=== PATIENT | female | born 1970 | race Caucasian/White ===

== ENCOUNTER → 2017-01-19 | Outpatient (CLI) | payer OTHER | LOC: MAMMO 01-12 14:01 | DX: Z12.31 Encounter for screening mammogram for malignant neoplasm of breast (principal) | CPT/HCPCS: G0202 ==

== ENCOUNTER 2020-06-16 16:48 | Emergency (ER) | payer BC ==
[2020-06-16] MEDS ORDERED: NEURONTIN300 MG/CAP (17:30)
[2020-06-16] MEDS ORDERED: AMARYL4 M1 PO (17:30)
[2020-06-16] MEDS ORDERED: GLUCOPHAGE850 MG PO (17:30)
[2020-06-16] MEDS ORDERED: NORCO 325 MG-7.1 TA1 PO (17:31)
[2020-06-16] MEDS ORDERED: KLONOPIN 0.5MG0.5 MG PO (17:31)
[2020-06-16] MEDS ORDERED: ZANAFLEX4 M1 PO (17:32)
[2020-06-16] MEDS ORDERED: ZESTRIL20 M1 PO (17:32)
[2020-06-16] MEDS ORDERED: METOPROLOL SUCC50 M1 PO (17:33)
[2020-06-16] MEDS ORDERED: WELLBUTRIN SR150 M3 PO (17:34)
[2020-06-16] MEDS ORDERED: CLARITIN 1010 MG/TAB PO (17:34)
[2020-06-16] MEDS ORDERED: CYMBALTA60 M1 PO (17:34)
[2020-06-16 17:37] LABS: HEMATOCRIT 35.1 % (37.0-47.0); HEMOGLOBIN 11.9 g/dL (12.5-16.0); MEAN CELL VOLUME 88 fl (78-100); MEAN CORPUSCULAR HEMOGLOBIN 30 pg (27-31); MEAN CORPUSCULAR HGB CONC 34 g/dL (33-37); MEAN PLATELET VOLUME 11.4 fl (7.4-10.4); PLATELET COUNT 174 K/mm3 (130-400); RED BLOOD COUNT 3.99 M/mm3 (4.10-5.30); RED CELL DISTRIBUTION WIDTH 12.9 % (11.5-14.5); WHITE BLOOD COUNT 9.7 K/mm3 (4.8-10.8)
[2020-06-16 17:43] LABS: ALBUMIN 3.5 g/dL (3.5-5.0); POTASSIUM 4.5 mmol/L (3.5-5.1)
[2020-06-16 17:45] LABS: CALCIUM 9.2 mg/dL (8.3-10.5)
[2020-06-16 17:46] LABS: TOTAL PROTEIN 7.1 g/dL (6.4-8.3)
[2020-06-16 17:48] LABS: TOTAL BILIRUBIN 0.4 mg/dL (0.2-1.2)
[2020-06-16 17:55] LABS: PARTIAL THROMBOPLASTIN TIME 23.9 SECONDS (21.0-32.0); PROTHROMBIN TIME 9.6 SECONDS (9.0-12.0)
[2020-06-16] MEDS ORDERED: VICTOZA 3-0.6 MG/0.1 SQ (17:58)
[2020-06-16] MEDS ORDERED: LANTUS PEN100 U/ML SQ (18:37)
[2020-06-16 18:55] LABS: BAND 1 % (0-10); LYMPHOCYTE 18 % (20-51); MONOCYTE 11 % (3-10); NEUTROPHILS 70 % (42-75)
[2020-06-16 19:24] LABS: D-DIMER 2.69 mg/L FEU (0.15-0.50)
[2020-06-16 20:04] LABS: URINE APPEARANCE HAZY; URINE COLOR YELLOW; URINE KETONE 2+ (NEGATIVE); URINE PROTEIN(semi-quant) TRACE mg/dL (NEGATIVE)
[2020-06-16 20:05] LABS: URINE BILIRUBIN NEGATIVE (NEGATIVE); URINE BLOOD 50 ery/uL (NEGATIVE); URINE LEUKOCYTE ESTERASE TRACE (NEGATIVE); URINE NITRATE NEGATIVE (NEGATIVE); URINE UROBILINOGEN NORMAL (NORMAL); URINE WBC 16-30 /hpf (0-3)
[2020-06-16] MEDS ORDERED: CEPHALEXIN500 M2 PO (22:36)
[2020-06-16] MEDS ORDERED: NEXIUM 40MG40 MG PO (22:37)
[2020-06-16 22:55] VITALS: BP 160/92
== END 2020-06-16 22:55 | disposition home or self-care (01) ==
LOC: ED 16:48
PROVIDERS: Nurse Practitioner
DX: K27.9 Peptic ulcer, site unspecified, unspecified as acute or chronic, without hemorrhage or perforation (principal); N12 Tubulo-interstitial nephritis, not specified as acute or chronic; R73.9 Hyperglycemia, unspecified; Z91.14 Patient's other noncompliance with medication regimen; Z90.49 Acquired absence of other specified parts of digestive tract; Z90.710 Acquired absence of both cervix and uterus; Z87.891 Personal history of nicotine dependence; Z79.4 Long term (current) use of insulin; Z20.822 Contact with and (suspected) exposure to COVID-19
CPT/HCPCS: C9113; J0696; J7030; Q9967

== ENCOUNTER → 2021-09-16 | Outpatient (CLI) | payer BC ==
[~2021-09-16] MED LIST: AMARYL4 M1 PO; CEPHALEXIN500 M2 PO; CLARITIN 1010 MG/TAB PO; CYMBALTA60 M1 PO; GLUCOPHAGE850 MG PO; KLONOPIN 0.5MG0.5 MG PO; LANTUS PEN100 U/ML SQ; METOPROLOL SUCC50 M1 PO; NEURONTIN300 MG/CAP; NEXIUM 40MG40 MG PO; NORCO 325 MG-7.1 TA1 PO; VICTOZA 3-0.6 MG/0.1 SQ; WELLBUTRIN SR150 M3 PO; ZANAFLEX4 M1 PO; ZESTRIL20 M1 PO
== END ==
LOC: MAMMO 15:59
DX: Z12.31 Encounter for screening mammogram for malignant neoplasm of breast (principal)

== ENCOUNTER 2022-10-19 16:21 | Outpatient (RCR) | payer BC | END 2022-11-18 | disposition home or self-care (01) | LOC: PT | DX: M47.22 Other spondylosis with radiculopathy, cervical region (principal) ==

== ENCOUNTER → 2022-11-26 | Outpatient (CLI) | payer BC | LOC: RAD 11:34 | DX: Z01.811 Encounter for preprocedural respiratory examination (principal); R06.02 Shortness of breath ==

== ENCOUNTER → 2023-04-07 | Outpatient (CLI) | payer BC | LOC: RAD 18:45 | DX: M79.672 Pain in left foot (principal) ==